=== PATIENT | male | born 1950 | race Caucasian/White ===

== ENCOUNTER → 2018-05-10 07:22 | Outpatient (CLI) | payer MEDICARE, OTHER, SELFPAY ==
--- NOTE | 2018-05-10 | DI.MRI.S_ITS ---
PROCEDURE: MR HEAD/BRAIN WO/W CON INDICATIONS: Paresthesia of skin, NECK PAIN, STIFFNESS TECHNIQUE: Noncontrast axial T1 spin echo, axial T2 fast spin echo, sagittal and axial FLAIR, coronal T2 fast spin echo, axial gradient echo, axial diffusion and ADC through the brain. After the administration Of contrast, axial and coronal T1 spin echo with fat saturation through the brain. COMPARISON: None. FINDINGS: Image quality: Excellent. CSF spaces: Basal cisterns are patent. No extra-axial fluid collections. Ventricles are normal in size and shape. Brain: No midline shift. No intracranial bleeds or masses. No abnormal intracranial enhancement. There is cerebral volume loss for age. There is periventricular white matter chronic small vessel ischemic change. The brainstem appears normal. Diffusion-weighted images demonstrate no acute ischemic insults. No chronic ischemic insults. Normal intravascular flow voids are present. Skull and face: Calvarial marrow is normal in signal. Orbits appear normal. Sinuses: Sinuses and mastoids appear clear. IMPRESSION: Overall, no signal abnormality. No abnormal enhancement. Subcentimeter right parietal scalp focus appears to be external to the patient. Recommend correlation with visual inspection. Dictated by: Manuel Garduno M.D. on 05/10/2018 at 8:54 Approved by: Manuel Garduno M.D. on 05/10/2018 at 9:00
--- NOTE | 2018-05-10 | DI.RAD.S_ITS ---
PROCEDURE: XR CERVICAL SPINE 2V OR 3V INDICATIONS: Paresthesia of skin, NECK PAIN, STIFFNESS TECHNIQUE: 4 view(s) of the cervical spine were acquired. COMPARISON: None. FINDINGS: Bones: No fractures or dislocations to the C6 level. The lateral masses of C1 appear intact on the odontoid view. No suspicious bony lesions. Bilateral facet arthropathy Diffuse endplate spurring or marrow in the mid lower cervical spine. There is mild narrowing of the C5-C6 disc space. Grade 1 anterolisthesis of C4 on C5. Straightening of the normal cervical lordosis. There is probable C6-C7 this degeneration however this level is not well-visualized Soft tissues: No prevertebral soft tissue swelling. Scant left carotid calcifications. IMPRESSION: Diffuse facet arthropathy and mild mid-lower cervical disc degeneration. Grade 1 anterolisthesis of C4 on C5. Dictated by: Manuel Garduno M.D. on 05/10/2018 at 9:55 Approved by: Manuel Garduno M.D. on 05/10/2018 at 10:06
== END ==
PROVIDERS: Visit Provider Family Medicine
DX: M43.6 Torticollis (principal); M47.812 Spondylosis without myelopathy or radiculopathy, cervical region; M50.323 Other cervical disc degeneration at C6-C7 level; M48.02 Spinal stenosis, cervical region; M43.12 Spondylolisthesis, cervical region; R20.2 Paresthesia of skin; R51 Headache; R25.3 Fasciculation; M62.81 Muscle weakness (generalized); R47.81 Slurred speech; R26.81 Unsteadiness on feet; H53.2 Diplopia
CPT/HCPCS: 70553; 72040; A9579

== ENCOUNTER → 2019-09-08 09:08 | Outpatient (CLI) | payer MEDICARE, OTHER, SELFPAY ==
--- NOTE | 2019-09-08 | DI.RAD.S_ITS ---
PROCEDURE: FL BARIUM SWALLOW W SPEECH INDICATIONS: Other dysphagia, PARKINSONS TECHNIQUE: Examination was conducted in conjunction with speech pathology per standard protocol. In the lateral projection, filming was performed of the patient swallowing. AP projection filming may also be performed with patient swallowing. COMPARISON: None. FINDINGS: Function: The oral preparatory phase appears normal, with proper containment. The subsequent oral propulsive phase, pharyngeal phase, and esophageal phase of swallowing also appear normal with all proffered substances. There was tracheal aspiration with serial swallowing of thin liquid barium consistencies Morphology: No cricopharyngeal bar is identified. No cervical esophageal webs. No Zenker's diverticulum. No strictures. IMPRESSION: Tracheal aspiration Dictated by: Manuel Garduno M.D. on 09/08/2019 at 12:47 Approved by: Manuel Garduno M.D. on 09/08/2019 at 12:48
--- NOTE | 2019-09-11 12:12 | ST.SWALLOW ---
Visit Care Team Role Provider Type Dakota Gifford MD Attending Provider Physician Referring Provider Specialty: Ear, Nose, Throat Address: [address] [place] [address], [address] Email: [email or web address] Modified Barium Swallow Study STUD DRIVER Modified Barium Swallow Study Start: 09/08/19 17:39 Freq: Status: Active Protocol: Document 09/08/19 17:39 PHILLIP (Rec: 09/08/19 17:40 PHILLIP [email or web address]) Modified Barium Swallow Study Total Time Visit Start Time 09:30 Visit Stop Time 10:10 Total Visit Minutes [address] Dakota Gifford Reason for Referral Dysphagia, Parkinson's Setting Setting Outpatient Care Patient Information Identification Type Name,ID Card Patient History The pt provided case history. He reported sensation of solids and liquids frequently passing to the right side of the pharynx with swallow, followed by coughing. He also c/o sticking sensation at chest area with heavy textures such as bread. He reported PND that accumulates in his throat and interferes with swallowing, in that he needs to clear mucous before he is able to swallow. Referring MD indicates diagnosis of Parkinson's disease. Details not obtained. Subjective Observations The pt arrived on time, accompanied by who remained in waiting area during evaluation and participated in discussions upon MBSS completion. The pt provided case history and followed all verbal instructions without difficulty. He ambulated with 4WW and was able to stand independently during A/P visualization. Patient Positioning Position View Lat-A/P Imaging Lateral View Textures Administered Trials Presented Thin Liquid via Spoon,Thin Liquid via Cup,[place] Liquid via Spoon,[place] Liquid via Cup,Honey Liquid via Spoon, Dysphagia Blenderized Textures ,Regular Textures Oral Phase Source: MBSIMP (TM) (C) Bolus Specific Scoring Grid Lip Closure No Impairment (WNL) Tongue Control During Bolus Hold WFL Bolus Prep/Mastication No Impairment (WNL) Bolus Transport/Lingual Motion WFL A/P Lingual Propulsion Delay No Oral Residue Mild Impairment Residue Clearing Minimal Impairment Nasal Regurgitation No Additional Oral Phase Observations Oral Peripheral Exam: Symmetrical structures WNL of strength, coordination and ROM . Pt has natural dentition in good condition for age. Oral Phase: WFL. Mild oral residue on lingual blade, particularly thin and nectar- thick liquids, was observed to spill to vallecula following swallow without additional swallow triggered. Residue cleared when pt instructed to swallow. No pocketing observed . Bolus prep, mastication, and A/P propulsion were WNL with exception of early escape of thin liquids to posterior epiglottis prior to onset of swallow. Swallow trigger with cookie occurred with bolus head at base of tongue, which is not uncommon for the pt's age, and was normal with all other consistencies. Pharyngeal Phase Source: MBSIMP (TM) (C) Bolus Specific Scoring Grid Delayed Initiation of Pharyngeal Swallow Yes: Thin liquids only Soft Palate Elevation No Impairment (WNL) Tongue Base Strength/Range of Motion Mild Impairment Residue Along the Tongue Base Yes: Mild Clearance of Residue Along Tongue Base Minimal Impairment Laryngeal Elevation WFL Anterior Hyoid Movement WFL Epiglottic Range of Motion No Impairment (WNL) Vallecular Residue Yes: Mild, greatest collection from oral residue Clearance of Vallecular Residue No Impairment (WNL) Laryngeal Vestibular Closure Mild Impairment Pharyngeal Stripping Wave Mild Impairment Pharyngeal Contraction Minimal Impairment Posterior Pharyngeal Wall Residue No Upper Esophageal Sphincter Opening No Impairment (WNL) Residue in the Pyriform Sinuses Yes: Occ trace, impacted by apparent presence of phlegm Clearance of Residue in the Pyriform No Impairment (WNL) Sinuses Esophageal Clearance Upright Position No Impairment (WNL) Pharyngoesophageal Backflow Observed No Additional Pharyngeal Phase Observations Mike silent aspiration was observed x1 during the second of three consecutive swallows of thin liquid. Volitional cough per STUD DRIVER instructions had little to no effect in clearing contrast, which remained on and below VFs and along tracheal wall during subsequent swallows for >5 min . No spontaneous cough response from pt was ever elicited. No other penetration or aspiration was observed with all other trials. Mildly reduced seal between base of tongue and pharyngeal constrictors was observed, as well as reduced stripping wave , indicating generalized mild weakness of pharyngeal musculature. Only trace to mild pharyngeal residue was observed with thin and nectar- thick liquids; much improved with bolus bulk. Mild-moderate phlegm at pyriform sinuses appeared to be present, as seen by minimal residue of contrast. Hyolaryngeal elevation and anterior protrusion was WFL, although airway closure was incomplete during consecutive swallows, allowing for aspiration of thin liquids and indicating reduced strength and/or endurance of laryngeal musculature. A/P View Textures Administered Trials Presented [place] Liquid via Spoon, Dysphagia Blenderized Textures ,Barium Tablet A/P View Observations Pharyngeal Contraction Minimal Impairment Esophageal Function No Impairment (WNL) Esophageal Clearance Upright Position No Impairment (WNL) Additional Observations Minimal right side pharyngeal bulge observed, which may account for the pt's sensation of bolus movement to right; however, no negative consequences of this were observed. Clinical Impressions Dysphagia Type Mild-Moderate Oropharyngeal Dysphagia Findings Pt presents with mild-moderate oropharyngeal dysphagia secondary to mildly reduced strength and/or coordination of swallow musculature. Oral dysphagia is characterized by reduced oral containment of thin liquids, resulting in premature spillage to pharynx. Pharyngeal dysphagia is characterized by reduced pharyngeal constriction and airway protection, particularly during consecutive swallows. Mike aspiration of thin liquid during consecutive swallows was observed, without cough reflex by patient during or after swallow while contrast remained at and below VFs for greater than 5 min. Volitional cough per STUD DRIVER's instructions was not effective in clearing contrast. No other layrngeal penetration or tracheal aspiration was observed. A moderate amount of phlegm did appear to be present at level of pyriform sinuses and contributed to minimal residue of contrast, which cleared with subsequent swallows. Minimal right side bulge of pharyngeal constrictors was also observed without negative consequence to the swallow function or safety; however, this may contribute to the pt' s sensation that boluses follow a right-sided path during swallow. Rehabilitation Potential Good Patient Appropriate for Therapy Yes Recommendations Diet Liquids Order Thin Diet Order Regular Medication Recommendation As Tolerated Additional Dietary Needs Single Sips,Controlled Sips,No Straws Aspiration Precautions Recommended Precautions Upright at 90 Degrees,Small Bites/Sips Treatment Plan Therapy Recommendations Outpatient Speech Therapy, Lingual Exercises,Base of Tongue Exercises,Compensatory Strategy Education Additional Therapy Recommendations Laryngeal and pharyngeal swallow exercises Compensatory Strategies Recommendations Sitting Upright (90 deg),No Straw,Liquids from Cup,Small Bites and Sips Additional Compensatory Strategies Single sips only Recommended Short Term Goals 1. The pt will perform exercises with written instructions to increase strength, coordination and ROM of swallow musculature to increase swallow efficiency and reduce risk of aspiration. 2. The pt will follow safe swallow strategies independently to reduce risk of aspiration. Skiing Teacher Goals 1. The pt will follow HEP independently to improve swallow function and reduce risk of aspiration. 2. Using compensatory strategies as needed, the pt will tolerate regular diet texture and thin liquids in single and consecutive sips without overt s/sx of aspiration, as measured by MBSS follow-up study to ensure absence of silent aspiration. Placement Recommendation After Discharge Home,Outpatient Therapy Additional Recommendations/Comments Follow up with ENT regarding excessive phlegm.
== END ==
PROVIDERS: Referring Provider Otolaryngology; Visit Provider Otolaryngology
DX: R13.19 Other dysphagia (principal); G20 Parkinson's disease
CPT/HCPCS: 74230; 92611

== ENCOUNTER → 2019-10-03 09:44 | Outpatient (CLI) | payer OTHER, MEDICARE, SELFPAY ==
--- NOTE | 2019-10-03 | DI.CT.S_ITS ---
PROCEDURE: CT SINUS SCREEN WO CON INDICATIONS: Other chronic sinusitis TECHNIQUE: Noncontrast 3.0 mm axial images acquired from the frontal sinuses to the mid-sella, with coronal and sagittal reformats. For radiation dose reduction, the following was used: automated exposure control, adjustment of mA and/or kV according to patient size. COMPARISON: None. FINDINGS: Image quality: Excellent. Sinuses: Postsurgical sinus changes are present. Ostiomeatal Complexes: Ostiomeatal complexes are patent. No Michael cells. Miscellaneous: Visualized intra-orbital contents are normal. Right middle filiberto bullosa is present. Mild leftward nasal septal deviation. No paradoxical turbinate. No fluid collections are identified. Trace left sphenoid mucosal thickening is noted. IMPRESSION: 1. Postsurgical changes as above. 2. Leftward nasal septal deviation. Dictated by: Cuca Dhillon M.D. on 10/03/2019 at 13:05 Approved by: Cuca Dhillon M.D. on 10/03/2019 at 14:00
== END ==
PROVIDERS: Referring Provider Otolaryngology; Visit Provider Otolaryngology
DX: J32.8 Other chronic sinusitis (principal); J34.2 Deviated nasal septum
CPT/HCPCS: 70486

== ENCOUNTER 2019-10-22 11:30 | Outpatient (RCR) | payer MEDICARE, OTHER, SELFPAY ==
--- NOTE | 2019-10-15 12:38 | ST.OPIE ---
Visit Care Team Role Provider Type Seymour Salinas PA-C Primary Care Provider Non-Staff Specialty: Medical Address: [address] [place] [address], [address] Email: Dakota Gifford MD Attending Provider Physician Referring Provider Specialty: Ear, Nose, Throat Address: [address] [place] [address], [address] Email: [email or web address] Speech-Language Pathology Initial Evaluation EDITOR DICTIONARY Clinical Swallow Evaluation Start: 10/15/19 11:22 Freq: Status: Active Protocol: Document 10/15/19 11:22 LNK (Rec: 10/15/19 12:37 LNK [email or web address]) Clinical Swallow Evaluation Session Time Visit Start Time 11:30 Visit Stop Time 12:20 Total Visit Minutes 50 Visit Information Visit Number 1 Plan of Care Dates 10/15/19-01/15/[address] Taz Gifford Reason for Referral dysphagia Setting Assessment Location Outpatient Care Visit Type Note Type Re-Evaluation Next Note Type Next Note Type Treatment Note Patient Information History Pt reported sensation of solids and liquids frequently passing to the right side of the pharynx with swallow, followed by coughing. He also c/o sticking sensation at chest area with heavy textures such as bread. He reported PND that accumulates in his throat and interferes with swallowing, in that he needs to clear mucous before he is able to swallow. Pt had an MBSS on 09/08/19, that indicated micha silent aspiration x1 during the second of three consecutive swallows of thin liquid. Volitional cough per EDITOR DICTIONARY instructions had little to no effect in clearing contrast, which remained on and below VFs and along tracheal wall during subsequent swallows for >5 min. No spontaneous cough response from pt was ever elicited. Overall, the pt presented with mild-moderate oropharyngeal dysphagia secondary to mildly reduced strength and/or coordination of swallow musculature. Oral dysphagia is characterized by reduced oral containment of thin liquids, resulting in premature spillage to pharynx. Pharyngeal dysphagia is characterized by reduced pharyngeal constriction and airway protection, particularly during consecutive swallows. Subjective Observations pt arrived with his . Pt and his reported that Mr. 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 Evaluation Liquids Trialed Thin Solids Trialed Regular Administration Type Cup Single Sip,Straw,Self- Feeding Oral Impairment Mildly Impaired Oral Strategies Controlled Bite/Sip Size, Alternate Liquids/Solids Oral Phase Comments Oral phase of swallow WFL Pharyngeal Impairment Moderately Impaired Pharyngeal Strategies Sitting Upright (90 deg), Double Swallow,Small Bites and Sips,Alternate Liquids/Solids Pharyngeal Phase Comments Hyolaryngeal elevation felt adequate upon palpation. There was no cough noted - there ws throat clear x1. Minimal oral residue observed. Findings Dysphagia Type oropharyngeal Rehabilitation Potential Good Impressions Pt presented with oropharyngeal dyspahgia secondary to a movement disorder. The MBSS was reviewed with the pt and his with aspiration pointed out and discussion of ways to prevent further aspiration. Single swallows instead of multiple gulp swallows to increase safety. All questions were answered with the pt expressing understanding. Diet Recommendations Liquids Order Thin Diet Order Regular Medication Recommendations As Tolerated Additional Dietary Needs No Straws Aspiration Precautions Recommended Precautions Upright at 90 Degrees, Alternate Liquids/Solids, Frequent Rest Periods,Small Bites/Sips,Liquids from Cup Treatment Plan Appropriate for Therapy Yes Therapy Recommendations Dysphagia therapy Dysphagia Goals Pt will perform linguapharyngeal exercised to increase base of tongue strength (i.e., tongue press and release, hard push and production of words beginning with /k/) twice daily per pt report. Pt will demonstrate reduced cough/choking episodes with safe swallow strategies as per pt/ report. Referrals/Other Recommended Referrals Primary Care Physician
--- NOTE | 2019-10-15 12:39 | ST.OPPOC ---
Physical, Occupational & Speech Therapy At [facility] Visit Care Team Role Provider Type Seymour Salinas PA-C Primary Care Provider Non-Staff Address: [address] [place] [address], [place], [address] Dakota Gifford MD Attending Provider Physician Referring Provider Address: [address] [place] [address], [address] Speech Pathology Plan of Care Plan of Care Dates 10/15/19-01/15/20 Rehabilitation Potential Good Electronically Signed by: SHAUNA Smith 10/15/19 1243 Please Sign and Return: I have reviewed this Plan of Care and certify that the skilled therapy services above are required to meet the patient?s needs. Physician Signature Date Printed Name and Credentials Clinical Instructor Signature Printed Name and Credentials
--- NOTE | 2019-10-22 12:09 | ST.IPDYTX ---
Visit Care Team Role Provider Type Seymour Salinas PA-C Primary Care Provider Non-Staff Specialty: Medical Address: [address] [place] [address], [place], [address] Email: Dakota Gifford MD Attending Provider Physician Referring Provider Specialty: Ear, Nose, Throat Address: [address] [place] [address], [address] Email: [email or web address] Dysphagia Treatment RATOPRINTER Dysphagia Treatment Start: 10/15/19 11:22 Freq: Status: Active Protocol: Document 10/22/19 11:18 LNK (Rec: 10/22/19 12:08 LNK [email or web address]) Dysphagia Treatment Session Time Visit Start Time 11:30 Visit Stop Time 12:15 Total Visit Minutes 45 Visit Information Visit Number 2 Plan of Care Dates 10/15/19-01/15/20 Setting Assessment Location Outpatient Care Visit Type Note Type Treatment Note Next Note Type Next Note Type Treatment Note Patient Information Identification Type Name,Date of Subjective Observations Pt arrived with his who attended the session Treatment Liquids Trialed Thin Solids Trialed Regular Oral Strategies Upright at 90 degrees, Controlled Bite/Sip Size Pharyngeal Strategies Sitting Upright (90 deg), Double Swallow,Small Bites and Sips,Alternate Liquids/Solids Treatment Activities Reviewed exercises with pt and his . He reports that he will do the exercises daily while watching TV. Pt did report that he has difficulty with liquids remembering to slow down at first and will sometimes cough. Then he slows to 1 sip/swallow at a time. he noted he has no difficulty with solids. Introduced addition of Shaker exercise to elevate larynx and the effortful swallow, which will decrease tendency to swallow >1 sip and decrease aspiration risk. Pt and reported they understood and agreed. Assessment Patient Response to Treatment Excellent Rehab Potential Good Diet Recommendations Recommendations Continue Current Diet Medication Recommendations As Tolerated,Crushed in Carrier Additional Dietary Needs Single Sips,Controlled Sips Aspiration Precautions Recommended Precautions Upright at 90 Degrees, Alternate Liquids/Solids,Small Bites/Sips,Effortful Swallow Treatment Plan Dysphagia Goals Pt will perform linguapharyngeal exercised to increase base of tongue strength (i.e., tongue press and release, hard push and production of words beginning with /k/) twice daily per pt report. Pt will add Shaker exercises to daily HEP Pt will demonstrate reduced cough/choking episodes with safe swallow strategies as per pt/ report. [ End ]
--- NOTE | 2020-02-09 15:35 | ST.IPDYTX ---
Visit Care Team Role Provider Type Seymour Salinas PA-C Primary Care Provider Non-Staff Specialty: Medical Address: [address] [place] [address], [place], [address] Email: Dakoat Gifford MD Attending Provider Physician Referring Provider Specialty: Ear, Nose, Throat Address: [address] [place] [address], [address] Email: [email or web address] PARKING STATION ATTENDANT Dysphagia Treatment PARKING STATION ATTENDANT Dysphagia Treatment Start: 10/15/19 11:22 Freq: Status: Active Protocol: Document 02/09/20 15:33 LNK (Rec: 02/09/20 15:35 LNK [email or web address]) Dysphagia Treatment Setting Assessment Location Outpatient Care Visit Type Note Type Discharge Summary Treatment Treatment Activities Reviewed exercises with pt and his . He reports that he will do the exercises daily while watching TV. Pt did report that he has difficulty with liquids remembering to slow down at first and will sometimes cough. Then he slows to 1 sip/swallow at a time. he noted he has no difficulty with solids. Introduced addition of Shaker exercise to elevate larynx and the effortful swallow, which will decrease tendency to swallow >1 sip and decrease aspiration risk. Pt and reported they understood and agreed. Treatment Plan Dysphagia Goals Pt has not been seen for swallowing therapy since last session, 10/22/19. Will discharge at this time]
== END 2020-04-15 08:38 ==
LOC: SP 11:30
PROVIDERS: PCP Physician Assistant; Referring Provider Otolaryngology; Visit Provider Otolaryngology
DX: R13.19 Other dysphagia (principal)
CPT/HCPCS: 92526; 92610

== ENCOUNTER → 2020-05-05 13:34 | Outpatient (CLI) | payer MEDICARE, OTHER, SELFPAY ==
--- NOTE | 2020-05-05 | DI.RAD.S_ITS ---
PROCEDURE: FL BARIUM SWALLOW INDICATIONS: Dysphagia, pharyngoesophageal phase COMPARISON: [facility], , [place] BARIUM SWALLOW W SPEECH, 09/08/2019, 8:32. FINDINGS: Single-contrast study was utilized due to inability of the patient to fully cooperate with the examination. Function: There is moderately abnormal esophageal peristalsis with episodic tertiary contractions. No elicited gastroesophageal reflux. Morphology: Single-contrast images demonstrate normal mucosal morphology. Single contrast views also show no esophageal strictures, extrinsic mass effects, or diverticula. Limited images of the stomach demonstrate normal appearance. IMPRESSION: The study is limited by patient's inability to fully cooperate with the maneuvers required for the examination to utilize air-contrast technique. Single contrast imaging therefore was utilized and is effective. Esophageal dysmotility is observed. No esophageal mass or stricture was seen. No reflux could be elicited. The patient discussed in detail episodic swallowing events of immediate induction of coughing, raising concern for dysmotility and aspiration at the upper tracheal airway. Therefore dedicated speech therapy swallowing evaluation utilizing high-resolution rapid sequence imaging targeted to the swallowing mechanism likely is warranted. Dictated by: Dandre Garcia M.D. on 05/05/2020 at 14:58 Approved by: Dandre Garcia M.D. on 05/05/2020 at 15:08
== END ==
PROVIDERS: PCP Physician Assistant; Referring Provider Internal Medicine Gastroenterology; Visit Provider Internal Medicine Gastroenterology
DX: R13.14 Dysphagia, pharyngoesophageal phase (principal); K22.4 Dyskinesia of esophagus
CPT/HCPCS: 74220

== ENCOUNTER → 2020-05-24 14:34 | Outpatient (CLI) | payer MEDICARE, OTHER, SELFPAY ==
[2020-05-24 17:07] LABS: COVID19 -Nasal RAPID Negative (Negative)
== END ==
PROVIDERS: PCP Physician Assistant; Visit Provider Nurse Practitioner
DX: Z01.812 Encounter for preprocedural laboratory examination (principal); Z20.822 Contact with and (suspected) exposure to COVID-19
CPT/HCPCS: 87635; C9803

== ENCOUNTER 2020-05-26 09:11 | Day surgery (SDC) | payer MEDICARE, OTHER, SELFPAY ==
[2020-05-26] VITALS (10 sets, daily range): BP systolic 93–142; BP diastolic 52–93; PULSE 60–74; RESP 10–20; TEMP 36.2–36.7; O2SAT 88–98; BMI 27.0
--- NOTE | 2020-05-26 | PATH_ITS ---
[facility] Accession Number: [id number] . 01 Material submitted: . esophagus, E-G Junction - GE JUNCTION BIOPSY . 01 Clinical history: . ESOPHAGITIS . 02 Diagnosis: Gastroesophageal Junction, Biopsy: Squamocolumnar junctional mucosa with focal specialized intestinal metaplasia; please see comment. Negative for dysplasia or malignancy. V 05/31/2020 1251 Local . 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 . 02 Electronically signed: . Bal Tran MD, PhD, Pathologist NPI- [id number] . 01 Gross description: . GE JUNCTION BIOPSY: Received in formalin are 3 fragment(s) of sandoval, soft tissue measuring 0.1 x 0.1 x 0.1 cm to 0.2 x 0.2 x 0.2 cm submitted entirely in 1 cassette(s) /SANJU 05/29/2020 0142 Local . 02 Pathologist provided ICD-10: K22.70, R13.14 . 02 CPT . 864819 Performed at: 01 [facility] [address], [place], [place] [id number] MD Beck Meier MD Phone: [phone] Performed at: 02 [facility] [address] [place], [place] [id number] MD Krissy Juarez MD Phone: [phone]
--- NOTE | 2020-05-26 07:58 | PM.HP.1 ---
History of Present Illness History of Present Illness Date Patient Seen: 05/26/20 Chief complaint: SDC Narrative: 69-year-old male who I saw 04/27/2020 due to esophageal dysphagia who is here for EGD and Botox injection Meds Home Medications and Allergies Home Medications Medication Instructions Recorded Confirmed Type upcgkbm-kxjiuqsmrfjcr-mfntzcoe 1 tab PO PRN PRN 05/26/20 05/26/20 History [Excedrin Extra Strength] gabapentin 300 mg PO DAILY 05/26/20 05/26/20 History ipratropium-albuterol [DuoNeb] 3 ml INHALATION Q4H PRN 05/26/20 05/26/20 History sertraline 25 mg PO DAILY 05/26/20 05/26/20 History simvastatin 10 mg PO DAILY 05/26/20 05/26/20 History Allergies Allergy/AdvReac Type Severity Reaction Status Date / Time No Known Drug Allergies Allergy Verified 05/26/20 09:35 Exam Narrative Exam Narrative: General: Patient is well developed, not in apparent distress Cardiovascular: Regular rate and rhythm, no murmurs, rubs, or gallops; no evidence of edema; no palpable abdominal aortic aneurysm Gastrointestinal: Normoactive bowel sounds, soft, nontender, nondistended, no rebound tenderness, no hepatosplenomegaly, no evidence of hernia Assessment & Plan Assessment & Plan narrative: 69-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 The risks include but are not limited to bleeding, splenic injury, infection, perforation which may require surgical intervention, missed lesions, and adverse reactions to sedative medicines. After a question and answer period, the patient agreed to proceed with the procedure(s) and gives informed consent.
[2020-05-26] MEDS: SODIUM CHLORIDE 0.9% 1,000 ML 70 ML IV ×2 (09:47→11:23)
[2020-05-26] MEDS: fentaNYL 100 MCG/2 ML INJ IV (10:42)
[2020-05-26] MEDS: ONABOTULINUMTOXINA 100 UNIT VIAL INJ (10:42)
[2020-05-26] MEDS: MIDAZOLAM 5 MG/5 ML VIAL IV (10:43)
--- NOTE | 2020-05-26 10:59 | P.OP.ENDO_ITS ---
Operative Date/Time/Diagnoses Date of procedure: 05/26/20 Procedure Notes Procedure in detail: Surgeon: Diego Prajapati MD Procedure: Esophagogastroduodenoscopy with biopsy and Botox injection Preoperative diagnosis: Esophageal dysphagia Postoperative diagnosis: Esophagitis near GE junction; hypertonic LES status post Botox injection Medications: Conscious sedation using 5 mg IV of Midazolam and 100 mcg IV of Fentanyl Preanesthesia Assessment An H and P was performed/updated and the Px?s ASA class is 2. The procedure was discussed in detail with the patient. The potential risks and complications including infection, bleeding, missed lesions, perforation, need for surgery in case of perforation, prolonged hospital stay, and were explained. A brief question and answer period was allotted and once all questions were answered, informed consent was obtained. The patient was brought back to the procedure room and placed on standard monitoring. The patient?s vital signs were monitored continuously throughout the entire procedure. Prior to starting, a timeout was performed to confirm the patient?s identity, allergies, medications, and procedure. Procedure in detail The patient was placed in left lateral decubitus position and a bite block was inserted. The tip of the upper endoscope was placed into the mouth and advanced without difficulty under direct visualization into the esophagus. Esophagus: There was note of a hypertonic lower esophageal sphincter which was able to be traversed with the endoscope. There was evidence of LA grade A esophagitis this was biopsied. The decision was made to inject 100 units of Botox into 4 quadrants. This was done without difficulty and with minimal bleeding Stomach: 3 cm hiatal hernia Duodenum: Normal visualized duodenal mucosa to the 2nd portion of the duodenum The patient tolerated the procedure well and will be brought back to the recovery area to be discharged once criteria are met. The total physician intraservice time was 14 minutes. Complications There were no complications and estimated blood loss was minimal. Recommendations: Resume previous diet Continue outPx medications Follow up pathology results Call our office ([facility]) to schedule follow-up in 2-3 months to reassess sym ptoms An emergency contact number was given to the patient for any complications related to the procedure
--- NOTE | 2020-05-26 11:47 | SUR.PHASEII ---
Received patient from Phase I nurse. Patient is drinking water but is unable to handle his secretions and the water will not go down when attempting to swallow. Suction provided at bedside. Instructed patient not to drink any more liquid until this nurse has consulted with Dr Prajapati. Patient denies any SOB and does not appear to be in any distress. VSS. Oxygen saturation 96% on room air. HR 62.
--- NOTE | 2020-05-26 12:31 | SUR.PHASEI ---
Dr Prajapati at bedside to assess patient. Patient still unable to swallow water without having it come back up. Dr Prajapati states that we will watch the patient for a while longer and to ambulate the patient. Dr Prajapati will re-evaluate after his next procedure.
--- NOTE | 2020-05-26 12:53 | SUR.PHASEII ---
Pt walked to the bathroom and also around the Nurses station x1 Pt is now in bed with suction for sputum.
== END 2020-05-26 13:50 | disposition home or self-care (01) ==
PROVIDERS: PCP Physician Assistant; Referring Provider Internal Medicine Gastroenterology; Visit Provider Internal Medicine Gastroenterology
PROC: 0DJ08ZZ Inspection of Upper Intestinal Tract, Via Natural or Artificial Opening Endoscopic (ICD-10-PCS; CPT 43235; principal; 2020-05-26 10:30)
DX: K22.70 Barrett's esophagus without dysplasia (principal); K44.9 Diaphragmatic hernia without obstruction or gangrene; K20.90 Esophagitis, unspecified without bleeding
CPT/HCPCS: 43236; 43239; J0585; J2250; J3010

== ENCOUNTER → 2020-11-01 09:12 | Outpatient (CLI) | payer MEDICARE, OTHER, SELFPAY ==
--- NOTE | 2020-11-01 | DI.RAD.S_ITS ---
PROCEDURE: FL BARIUM SWALLOW W SPEECH INDICATIONS: Dysphagia, oropharyngeal phase COMPARISON: TECHNIQUE: Examination was conducted in conjunction with speech pathology per standard protocol. In the lateral projection, filming was performed of the patient swallowing. AP projection filming may also be performed with patient swallowing. COMPARISON: [facility], , [place] BARIUM SWALLOW, 05/05/2020, 15:09. FINDINGS: Function: There is premature spillage during the oral phase. The subsequent oral propulsive phase, pharyngeal phase, and esophageal phase of swallowing are within normal limits with all proffered substances. No laryngotracheal penetration or aspiration. Mild vallecular pooling. Morphology: No cricopharyngeal bar is identified. No cervical esophageal webs. No Zenker's diverticulum. No strictures. IMPRESSION: No aspiration. Diminished oral containment. Mild vallecular pooling. Please see speech pathology report. Dictated by: Alli Fragoso M.D. on 11/01/2020 at 10:57 Approved by: Alli Fragoso M.D. on 11/01/2020 at 11:02
--- NOTE | 2020-11-01 16:05 | ST.SWALLOW ---
Visit Care Team Role Provider Type Seymour Salinas PA-C Primary Care Provider Non-Staff Specialty: Medical Address: [address] [place] [address], [id number] Email: Dakota Gifford MD Attending Provider Physician Referring Provider Specialty: Ear, Nose, Throat Address: [address] [place] [address], [address] Email: [email or web address] Modified Barium Swallow Study HEAD MIXER Modified Barium Swallow Study Start: 11/01/20 14:40 Freq: Status: Active Protocol: Document 11/01/20 14:49 LNK (Rec: 11/01/20 15:01 LNK [id number]) Modified Barium Swallow Study Setting Setting Outpatient Care Patient Information Identification Type Name,Date of Patient History The pt provided case history. He reported sensation of solids and liquids frequently passing to the right side of the pharynx with swallow, followed by coughing. He also c/o sticking sensation at chest area with heavy textures such as bread. He reported PND that accumulates in his throat and interferes with swallowing, in that he needs to clear mucous before he is able to swallow. Subjective Observations Pt was seated in the fluoroscopy chair. The directions and instructions were described for the pt who indicated he understood and agreed to continue. Patient Positioning Position View Lateral Imaging Lateral View Textures Administered Trials Presented Thin Liquid via Spoon,Thin Liquid via Cup,[place] Liquid via Spoon,[place] Liquid via Cup,Pudding Thick Liquid via Spoon,Mechanical Soft Textures ,Regular Textures Oral Phase Source: MBSIMP (TM) (C) Bolus Specific Scoring Grid Lip Closure No Impairment (WNL) Tongue Control During Bolus Hold Minimal Impairment Bolus Prep/Mastication Minimal Impairment Bolus Transport/Lingual Motion Minimal Impairment A/P Lingual Propulsion Delay No Nasal Regurgitation No Additional Oral Phase Observations Oral Peripheral Exam: Symmetrical structures WNL of strength, coordination and ROM . Pt has natural dentition in good condition for age. Pharyngeal Phase Source: MBSIMP (TM) (C) Bolus Specific Scoring Grid Delayed Initiation of Pharyngeal Swallow Yes: Premature spillage to the valeculla Number of Seconds Delayed (seconds) ~1+sec Soft Palate Elevation No Impairment (WNL) Tongue Base Strength/Range of Motion Mild Impairment Residue Along the Tongue Base No: Trace residue Clearance of Residue Along Tongue Base WFL Laryngeal Elevation Moderate Impairment Anterior Hyoid Movement Moderate Impairment Epiglottic Range of Motion Mild Impairment Vallecular Residue Yes: moderate residue - will clear with 2-3 swallows Clearance of Vallecular Residue Mild Impairment Laryngeal Vestibular Closure Mild Impairment Pharyngeal Stripping Wave Mild Impairment Posterior Pharyngeal Wall Residue No Upper Esophageal Sphincter Opening WFL Residue in the Pyriform Sinuses No Esophageal Clearance Upright Position WFL Pharyngoesophageal Backflow Observed No Additional Pharyngeal Phase Observations Reduced hyolaryngeal movement with minimal hyoid excursion. Premature spillage of bolus head into the valeculla with a delayed swallow response. Epiglottal ROM was WFL, but there was flash penetration into the laryngeal vestibule x3. No residue remained within the vestibule. Pt did not spontaneously cough. Cued for multiple follow up swallows to clear residue. Mild reduction of the medial pharyngeal constrictor, resulting in valecullar pooling. Pooling also noted at base of tongue. No aspiration was observed. A supraglottic swallow strategy was implemented to increase laryngeal closure strength and raise laryngeal structures. This resulted in no penetration of residue. Pt reported that he felt his swallow was better using that strategy. A/P View Esophageal Observations Esophageal Function See EGD report from 05/26/20. Reported dysmotility and tortuous contractions. Clinical Impressions Dysphagia Type Mild to moderate oropharyngeal dysphagia Findings Overall it does not appear that the pt's swallowing haschanged since the last MBSS in August 2019. Additionally, since the MBSS last Juse, the EGD report offers more information as to the pt's sense of globus with esophageal retention/ dysmotility as esophageal spasms. It was recommended to the pt to chew well, eat slowly, 1 bite at a time, and altermnate solids and liquids with the goal to assist the esophagus in emptying and reduce aspiration risk. Rehabilitation Potential Good Patient Appropriate for Therapy Yes: Linguapharyngeal exercises to increase tongue base strength Recommendations Diet Liquids Order Thin Diet Order Mechanical Soft Medication Recommendation As Tolerated,Whole in Carrier Aspiration Precautions Recommended Precautions Upright at 90 Degrees, Alternate Liquids/Solids,Small Bites/Sips,Effortful Swallow, Double Swallow,Supraglottic Swallow Treatment Plan Therapy Recommendations Outpatient Speech Therapy,Base of Tongue Exercises, Compensatory Strategy Education Compensatory Strategies Recommendations Double Swallow,Supraglottic Swallow,Small Bites and Sips, Alternate Liquids/Solids Short Term Goals 1. The pt will perform exercises with written instructions to increase strength, coordination and ROM of swallow musculature to increase swallow efficiency and reduce risk of aspiration. Customer Management Specialist Goals 1. The pt will follow HEP independently to improve swallow function and reduce risk of aspiration. 2. Using compensatory strategies as needed, the pt will tolerate regular diet texture and thin liquids in single and consecutive sips without overt s/sx of aspiration, as measured by MBSS follow-up study to ensure absence of silent aspiration. Placement Recommendation After Discharge Home
== END ==
PROVIDERS: PCP Physician Assistant; Referring Provider Otolaryngology; Visit Provider Otolaryngology
DX: R13.12 Dysphagia, oropharyngeal phase (principal); J98.8 Other specified respiratory disorders
CPT/HCPCS: 74230; 92611

== ENCOUNTER 2022-09-06 11:58 | Day surgery (SDC) | payer MEDICARE, OTHER, SELFPAY ==
[2022-09-06 12:27] VITALS: BP 136/86; PULSE 102; RESP 21; TEMP 36.2; O2SAT 94; BMI 27.6
[2022-09-06] MEDS: LACTATED RINGERS 1,000 ML 84 ML IV (12:39)
--- NOTE | 2022-09-06 12:52 | PM.PREOP ---
Pre-operative Note COVID-19 COVID-19 status: Negative Interval Note History & Physical reviewed/Exam performed by Physician: Yes Changes to H&P: No ASA Class (for procedural sedation): III
--- NOTE | 2022-09-06 12:52 | PM.OP.EGD ---
Operative Date/Time/Diagnoses Date of procedure: 09/06/22 Pre-op diagnosis: See indication and findings Procedure & Clinicians Study performed: EGD with Botox injection Indications: EGJ outlet obstruction, need for Botox injection at the lower esophageal sphincter Surgeon: Betsy Hall Procedure Notes Procedure in detail: After informed consent was obtained the patient was placed in left lateral decubitus position. The video upper scope placed into the oropharynx and with the patient's help swelled into the esophagus. The esophagus stomach and duodenum were carefully examined. On withdrawal, retroflexed view the GE junction was performed. The scope was removed. The patient tolerated procedure well. Blood loss none Complications none Sedation mac Findings 1. Abnormal appearing mucosa in the esophagus with poor vascular pattern. 2. Last 3 cm of tubular esophagus very tight. Retroflexed view the GE junction shows no mass lesion. Botox injection was performed with 20-25 units and 1/2 cc in 4 quadrants. No complications were noted 3. 3 cm hiatal hernia 4. Normal distal stomach and duodenal bulb and sweep Patient should follow up via Dr. Reese in 2-4 weeks at least by telephone to discuss how well this is worked and whether anything further should be performed. The rather severe and firm tightness in the distal esophagus raises the question as to whether EGJ obstruction is all that this is going.
[2022-09-06] MEDS: ONABOTULINUMTOXINA 100 UNIT VIAL INJ (13:44)
[2022-09-06 13:54] VITALS: BP 118/76; PULSE 82; RESP 18; TEMP 37.1; O2SAT 90
[2022-09-06 13:59] VITALS: BP 128/76; PULSE 79; RESP 14; O2SAT 93
[2022-09-06 14:05] VITALS: BP 136/87; PULSE 78; RESP 18; O2SAT 94
[2022-09-06 14:18] VITALS: BP 160/76; PULSE 78; RESP 17; TEMP 36.9; O2SAT 94
[2022-09-06 14:24] VITALS: BP 141/87; PULSE 78; RESP 16; O2SAT 95
--- NOTE | 2022-10-05 09:31 | P.HP_ITS ---
History of Present Illness History of Present Illness Date Patient Seen: 09/06/22 Chief complaint: EGD Narrative: EGJ outlet obstruction on manometry, need for trial of Botox injection [facility] Social History household members: spouse Smoking Status: Former smoker alcohol intake: never Meds Home Medications and Allergies Home Medications Medication Instructions Recorded Confirmed Type sertraline 25 mg tablet 100 mg PO DAILY 05/26/20 09/06/22 History simvastatin 10 mg tablet 10 mg PO DAILY 05/26/20 09/06/22 History carbidopa-levodopa 25 mg PO TID 09/06/22 09/06/22 History celecoxib 100 mg PO BID 09/06/22 09/06/22 History hydrophilic cream topical DAILY 09/06/22 History melatonin 3 mg tablet 3 mg PO ONCE HS 09/06/22 09/06/22 History riluzole 50 mg PO BID 09/06/22 09/06/22 History tamsulosin 0.4 mg PO DAILY 09/06/22 09/06/22 History Allergies Allergy/AdvReac Type Severity Reaction Status Date / Time No Known Drug Allergies Allergy Verified 09/06/22 14:01 Exam Vital Signs (past 8 hours): Oxygen Delivery Method Room Air Oxygen Flow Rate 2 Narrative Exam Narrative: Oropharynx free of lesion Chest clear to AP Cardiac exam without murmur Assessment & Plan Assessment & Plan narrative: EGJ outlet obstruction, need for botox. RBAs explained.
== END 2022-09-06 15:03 | disposition home or self-care (01) ==
PROVIDERS: PCP Physician Assistant; Referring Provider Internal Medicine Gastroenterology; Visit Provider Internal Medicine Gastroenterology
PROC: 0DJ08ZZ Inspection of Upper Intestinal Tract, Via Natural or Artificial Opening Endoscopic (ICD-10-PCS; CPT 43235; principal; 2022-09-06 13:00)
DX: K22.2 Esophageal obstruction (principal); K44.9 Diaphragmatic hernia without obstruction or gangrene
CPT/HCPCS: 43236; J0585; J2704

== ENCOUNTER → 2022-11-15 08:53 | Outpatient (CLI) | payer OTHER, SELFPAY ==
--- NOTE | 2022-11-15 | DI.CT.S_ITS ---
PROCEDURE: CT CHEST WO CON INDICATIONS: PERSISTENT PRODUCTIVE COUGH TECHNIQUE: Noncontrast 5 mm thick sections acquired from the pulmonary apices to the posterior costophrenic angles. 1 mm lung window, 5 mm thick coronal and sagittal and 7 mm axial MIP reformats were then acquired. For radiation dose reduction, the following was used: automated exposure control, adjustment of mA and/or kV according to patient size. COMPARISON: [facility], CT, CT ANGIO CHEST PE, 09/26/2022, 9:38. FINDINGS: Image quality: Excellent. Lungs and pleura: Diffusely narrowed bilateral lower lobe airways with moderately thickened [place], right greater than left. Central airways are patent. 7 mm solid nodule containing coarse round calcification present in the subpleural lateral left lower lobe, 3/158. Gravitational changes and passive atelectatic changes in the posterior lower lungs. No other pulmonary parenchymal consolidations or pleural effusions. Mediastinum: Heart size is borderline enlarged. Moderate coronary artery calcification. No pericardial effusion. No mediastinal adenopathy by size criteria. The thoracic aorta is ectatic and tortuous with mild arch calcification. Pulmonary arteries are normal caliber. Esophagus is normal in caliber. No hiatal hernia. Bones and chest wall: No suspicious bony lesions. No vertebral body compression fractures. No axillary or supraclavicular adenopathy by size criteria. Thyroid gland has a normal CT appearance . Abdomen: Upper abdomen demonstrates lobulated segment seven liver cyst. No other abnormalities visible without IV contrast. IMPRESSION: 1. There is a stable 7 mm nodule containing calcification in the left lower lobe with differential diagnosis of granuloma, hamartoma, and much less likely malignant etiologies. 2. Mild lower lobe bronchial wall thickening and airway narrowing. There may be an element of COPD. No other pulmonary parenchymal abnormalities. 3. Borderline cardiomegaly with moderate coronary artery calcification. Dictated by: Kimberli Duke M.D. on 11/15/2022 at 13:20 Approved by: Kimberli Duke M.D. on 11/15/2022 at 13:37
== END ==
PROVIDERS: PCP Physician Assistant; Referring Provider Physician Assistant; Visit Provider Physician Assistant
DX: R05.3 Chronic cough (principal); R91.1 Solitary pulmonary nodule; I25.10 Atherosclerotic heart disease of native coronary artery without angina pectoris; Z01.89 Encounter for other specified special examinations
CPT/HCPCS: 71250

== ENCOUNTER → 2023-09-12 09:50 | Outpatient (CLI) | payer OTHER, SELFPAY ==
--- NOTE | 2023-09-12 09:51 | DI.CT.S_ITS ---
PROCEDURE: CT ANGIO CHEST INDICATIONS: Abdominal aortic aneurysm/Thoracic aortic aneurysm TECHNIQUE: After the administration of intravenous contrast, 2.5 mm thick sections acquired from the lung apices to the posterior lung bases. Maximum intensity projection (MIP) oblique sagittal reformats were then acquired parallel to the aortic arch. For radiation dose reduction, the following was used: automated exposure control. COMPARISON: [facility], CT, CT CHEST WO CON, 11/15/2022, 9:11. [facility], CT, KIDNEY/ URETER/BLADDER, 09/13/2015, 11:16. [facility], CR, XR CHEST 1 VIEW, 09/26/2022, 8:11. [facility], CT, CT ANGIO CHEST PE, 09/26/2022, 9:38. FINDINGS: Image quality: Excellent. Aorta: The aortic root measures 5.3 cm at the sinus of Valsalva which is likely similar to the comparison CT dated September 26, 2022. Of note, the prior CT demonstrates marked motion artifact limiting evaluation of the aortic root. The ascending thoracic aorta measures up to 4.5 cm in diameter which is similar to the prior study as well. Scattered atheromatous calcifications are present at the thoracic aortic arch. The descending thoracic aorta is tortuous. No stenosis, aneurysmal dilatation or intramural hematoma. The celiac axis, paired bilateral renal arteries and SMA are widely patent. Lower Neck: No enlarged lymph nodes. Thyroid: No thyroid nodules which require sonographic follow up, per consensus guidelines. Axillae: No enlarged lymph nodes. Chest Wall: Unremarkable. Bones: A compression deformity is present at the superior L1 endplate. This was not visualized on the most recent prior comparison dated September 13, 2015. Lungs and Pleura: No pneumothorax or pleural effusions. No consolidation or suspicious nodules. Heart: Heart size is normal. No pericardial effusion. Thoracic Vessels: Pulmonary arteries demonstrate normal size. Mediastinum and Theresa: No enlarged lymph nodes. Esophagus: No wall thickening. Small hiatal hernia. Upper Abdomen: Low-density hepatic cystic lesions are noted. Diffuse cortical scarring is present throughout the visualized portions of the bilateral kidneys. There is a nonobstructing 1.2 cm calculus which is only partially characterized in the lower pole of the left kidney. Visualized upper abdomen solid organs and bowel loops appear normal. IMPRESSION: 1. Stable aneurysmal dilatation of the ascending thoracic aorta. 2. Nonobstructive left nephrolithiasis which is incompletely characterized. 3. Diffuse bilateral cortical thinning of the kidneys which is incompletely characterized. 4. Mild compression deformity at the superior L1 endplate. The most recent prior comparison is from 2016 of this region. The acuity of this finding is unknown. Dictated by: Nelly Archuleta M.D. on 09/12/2023 at 11:56 Approved by: Nelly Archuleta M.D. on 09/12/2023 at 12:08
--- NOTE | 2023-09-12 09:52 | DI.US.S_ITS ---
PROCEDURE: US RETROPERITONEAL COMP INDICATIONS: Abdominal aortic aneurysm/Thoracic aortic aneurysm TECHNIQUE: Real-time scanning was performed of the aorta, with image documentation. COMPARISON: None. FINDINGS: Aorta: Proximal abdominal aorta measures 2.8 cm in diameter. Mid abdominal aorta measures 2.6 cm in diameter. Distal abdominal aorta measures 2.9 cm in diameter. Bilateral common iliac arteries are not visualized due to overlying bowel gas. IMPRESSION: Ectasias of infrarenal abdominal aorta measures up to 2.9 cm in largest AP diameter. Annual ultrasound follow-up is recommended. Dictated by: Vincent Marie M.D. on 09/12/2023 at 13:55 Approved by: Vincent Marie M.D. on 09/12/2023 at 13:56
[2023-09-12 10:44] LABS: Estimated Glomerular Filt Rate > 60 mL/min (>60)
== END ==
PROVIDERS: Radiology Diagnostic Radiology; PCP Physician Assistant; Referring Provider Physician Assistant; Visit Provider Physician Assistant
DX: I71.40 Abdominal aortic aneurysm, without rupture, unspecified (principal); I71.20 Thoracic aortic aneurysm, without rupture, unspecified; N20.0 Calculus of kidney; M43.8X6 Other specified deforming dorsopathies, lumbar region
CPT/HCPCS: 36415; 71275; 76770; 82565; Q9967